=== PATIENT | male | born 1995 | race Two or more races ===

== ENCOUNTER 2018-09-11 19:06 | Emergency (ER) | payer BC, OTHER ==
[~2018-09-11] VITALS: Ht 172.7 cm; Wt 101.2 kg
[2018-09-11 19:15] VITALS: BP 127/83
== END 2018-09-11 20:49 | disposition home or self-care (01) ==
LOC: ED 20:45
DX: S40.022A Contusion of left upper arm, initial encounter (principal); V49.09XA Driver injured in collision with other motor vehicles in nontraffic accident, initial encounter; Y93.89 Activity, other specified; Y92.89 Other specified places as the place of occurrence of the external cause; Y99.8 Other external cause status
CPT/HCPCS: 99283